=== PATIENT | male | born 1995 | race African-American/Black ===

== ENCOUNTER 2020-06-29 13:51 | Emergency (ER) | payer BC ==
[~2020-06-29] VITALS: Ht 177.8 cm; Wt 137.5 kg
[2020-06-29 13:57] VITALS: BP 148/88
== END 2020-06-29 16:19 | disposition home or self-care (01) ==
LOC: ER 13:52
DX: M25.572 Pain in left ankle and joints of left foot (principal); R22.42 Localized swelling, mass and lump, left lower limb; Z91.018 Allergy to other foods
CPT/HCPCS: 93971; 99284

== ENCOUNTER 2020-12-24 04:57 | Day surgery (SDC) | payer BC, SELFPAY ==
[2020-12-24] VITALS (10 sets, daily range): BP systolic 130–146; BP diastolic 68–111
[~2020-12-24] VITALS: Ht 177.8 cm; Wt 145.0 kg
[~2020-12-24 04:57] MED LIST: NO HOME MEDS
[2020-12-24] MEDS ORDERED: ringers solution, lacted 1,000 ML IV SCH ×2 (05:00→07:30)
[2020-12-24] MEDS ORDERED: ceFAZolin inj. 3,000 MG in normal saline 100ml IV soln 100 ML IV ONE (05:30)
[2020-12-24] MEDS ORDERED: famotidine 20mg tablet PO ONE (05:30)
[2020-12-24] MEDS ORDERED: LIDOcaine 1% (10mg/ml) 2ml vial ONE (06:00)
[2020-12-24 06:34] LABS: BASOPHILS % (AUTO) 0.4 % (0-1); EOSINOPHILS # (AUTO) 0.2 X10'3 (0-0.9); EOSINOPHILS % (AUTO) 2.6 % (0-6); LYMPHOCYTES # (AUTO) 1.6 X10'3 (1.1-4.8); LYMPHOCYTES % (AUTO) 22.1 % (21-51); MEAN CORPUSCULAR HEMOGLOBIN 32.8 PG (27.0-31.0); MEAN CORPUSCULAR HGB CONC 34.9 g/dL (33.0-36.5); MEAN CORPUSCULAR VOLUME 93.9 FL (78-98); MEAN PLATELET VOLUME 8.6 FL (7.4-10.4); MONOCYTES # (AUTO) 0.5 X10'3 (0-0.9); MONOCYTES % (AUTO) 6.7 % (2-12); NEUTROPHILS # (AUTO) 4.9 X10'3 (1.8-7.7); NEUTROPHILS % (AUTO) 68.2 % (42-75); PRE OP HEMATOCRIT 50.6 % (42.0-52.0); PRE OP HEMOGLOBIN 17.7 g/dL (14.0-17.9); PRE OP PLATELET COUNT 231 X10'3 (140-440); RED BLOOD COUNT 5.39 X10'6 (4.70-6.10); RED CELL DISTRIBUTION WIDTH 12.9 % (11.5-14.5)
[2020-12-24] MEDS ORDERED: MIDAZolam 5mg/5ml vial ONE (06:53)
[2020-12-24] MEDS ORDERED: sevoflurane 250ml liquid IH ONE (06:53)
[2020-12-24] MEDS ORDERED: fentaNYL /PF 50mcg/ml 5ml ampule ONE (06:54)
[2020-12-24 07:05] LABS: ALBUMIN 4.1 G/DL (3.4-5.0); ALKALINE PHOSPHATASE 78 IU/L (46-116); BLOOD UREA NITROGEN 10 MG/DL (7-18); BUN/CREATININE RATIO 9.9 (5.4-32.0); CALCIUM 9.1 MG/DL (8.5-10.1); CHLORIDE 103 MMOL/L (99-107); CREATININE 1.01 MG/DL (0.60-1.10); PRE OP ANION GAP 12 (8-16); PRE OP AST 88 U/L (10-37); PRE OP BILIRUB, TOTAL 1.6 MG/DL (0.0-1.0); PRE OP GLUCOSE 95 MG/DL (70-104); PRE OP POTASSIUM 3.6 MMOL/L (3.4-5.1); PRE OP SODIUM 140 MMOL/L (135-145); TOTAL CARBON DIOXIDE 25.2 MMOL/L (24-32); TOTAL PROTEIN 8.4 G/DL (6.4-8.2); eGFR > 90 ML/MIN
[2020-12-24] MEDS ORDERED: LIDOcaine 2% (20mg/ml) 5ml vial ONE (07:06)
[2020-12-24] MEDS ORDERED: propofol inj 20 ML IV ONE ×2 (07:06)
[2020-12-24] MEDS ORDERED: ondansetron/PF 4mg/2ml inj ONE (07:07)
[2020-12-24] MEDS ORDERED: dexamethasone sod phosphate 4mg/ml inj. ONE (07:07)
[2020-12-24 07:08] LABS: PRE OP ALT 189 U/L (30-65)
[2020-12-24] MEDS ORDERED: morphine 4 MG/ML inj SYRINge IV PRN (07:30)
[2020-12-24] MEDS ORDERED: hydrALAZINE 20mg/ml inj. IV PRN (07:30)
[2020-12-24] MEDS ORDERED: morphine 2 MG/ML inj. syringe IV PRN (07:30)
[2020-12-24] MEDS ORDERED: labetalol 20mg/4ml (5mg/ml) syringe IV PRN (07:30)
[2020-12-24] MEDS ORDERED: ondansetron/PF 4mg/2ml inj IV PRN (07:30)
[2020-12-24] MEDS ORDERED: fentaNYL/PF 50MCG/1 ML 2ML syringe IV PRN (07:30)
--- NOTE | 2020-12-24 08:43 | NUR ---
Received from OR via [facility], accompanied by Anesthesiologist DR CLEMENS and report given by Anesthesiologist. PT DROWSY, LEFT LOWER LEG W/SPLINT AND DRSG COVERING INCISION W/KLAUS WRAP COVERING CDI. 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 Addendum: 12/24/20 at 0937 by Jyoti Petty RN Amended: Links added.
[2020-12-24] MEDS: fentaNYL/PF 50MCG/1 ML 2ML syringe IV PRN ×2 (09:18→09:39)
[2020-12-24] MEDS ORDERED: oxyCODONE/APAP 5-325mg tablet PO ONE (10:15)
--- NOTE | 2020-12-24 10:33 | NUR ---
PT PAIN IMPROVING, PT WANTS TO GO HOME. D/C INSTRUCTIONS GIVEN AND GONE OVER W/PT WHO VERBALIZED UNDERSTANDING. PT D/CD TO HOME VIA W/C TO PRIVATE VEHICLE W/O INCIDENT. Addendum: 12/24/20 at 1101 by Jyoti Petty RN Amended: Links added.
== END 2020-12-24 10:33 | disposition home or self-care (01) ==
LOC: PAS 04:57
PROVIDERS: ATTEND Podiatrist Foot & Ankle Surgery
DX: M25.372 Other instability, left ankle (principal); M79.672 Pain in left foot; Q68.8 Other specified congenital musculoskeletal deformities; M65.872 Other synovitis and tenosynovitis, left ankle and foot; E66.01 Morbid (severe) obesity due to excess calories; Z68.42 Body mass index [BMI] 45.0-49.9, adult; F12.90 Cannabis use, unspecified, uncomplicated; Z91.018 Allergy to other foods; Z79.899 Other long term (current) drug therapy; Z79.82 Long term (current) use of aspirin; Z72.89 Other problems related to lifestyle; Z20.822 Contact with and (suspected) exposure to COVID-19
CPT/HCPCS: 27695; 28120; 29898; 36415; 80053; 85025; 87635; A6222; A6223; C1713; J0690; J1100; J2001; J2250; J2405; J2704; J3010; A4215; A4618; A6253; A6449; A7000; J7120

== ENCOUNTER 2021-02-13 06:56 | Emergency (ER) | payer BC ==
[~2021-02-13] VITALS: Ht 177.8 cm; Wt 136.4 kg
[2021-02-13] MEDS ORDERED: ondansetron 4mg rapidly disintigrating tab PO ONE (08:00)
[2021-02-13] MEDS ORDERED: CAPS60CR6 TP (08:14)
[2021-02-13] MEDS ORDERED: ONDA4TAB6 PO (08:14)
[2021-02-13 09:02] LABS: BASOPHILS % (AUTO) 0.1 % (0-1); EOSINOPHILS # (AUTO) 0.1 X10'3 (0-0.9); EOSINOPHILS % (AUTO) 1.7 % (0-6); HEMATOCRIT 53.4 % (42.0-52.0); LYMPHOCYTES # (AUTO) 1.3 X10'3 (1.1-4.8); LYMPHOCYTES % (AUTO) 19.2 % (21-51); MEAN CORPUSCULAR HEMOGLOBIN 32.3 PG (27.0-31.0); MEAN CORPUSCULAR HGB CONC 34.1 g/dL (33.0-36.5); MEAN CORPUSCULAR VOLUME 94.7 FL (78-98); MEAN PLATELET VOLUME 8.9 FL (7.4-10.4); MONOCYTES # (AUTO) 0.5 X10'3 (0-0.9); MONOCYTES % (AUTO) 7.4 % (2-12); NEUTROPHILS # (AUTO) 4.9 X10'3 (1.8-7.7); NEUTROPHILS % (AUTO) 71.6 % (42-75); PLATELET COUNT 272 X10'3 (140-440); RED BLOOD COUNT 5.64 X10'6 (4.70-6.10); RED CELL DISTRIBUTION WIDTH 12.6 % (11.5-14.5); WHITE BLOOD COUNT 6.8 X10'3 (4.5-11.0)
[2021-02-13 09:09] LABS: HEMOGLOBIN 18.2 g/dl (14.0-17.9)
[2021-02-13 09:13] LABS: ALANINE AMINOTRANSFERASE 161 U/L (12-78); ALBUMIN 4.4 G/DL (3.4-5.0); ALBUMIN/GLOBULIN RATIO 0.9 (1.1-1.5); ALKALINE PHOSPHATASE 82 IU/L (46-116); ANION GAP 13 (8-16); ASPARTATE AMINO TRANSFERASE 81 U/L (10-37); BILIRUBIN,TOTAL 1.4 MG/DL (0.1-1.0); BLOOD UREA NITROGEN 12 MG/DL (7-18); BUN/CREATININE RATIO 12.4 (5.4-32.0); CALCIUM 9.7 MG/DL (8.5-10.1); CHLORIDE 102 MMOL/L (99-107); CREATININE 0.97 MG/DL (0.60-1.10); GLUCOSE 98 MG/DL (70-104); LIPASE 147 U/L (73-393); POTASSIUM 3.4 MMOL/L (3.5-5.1); SODIUM 141 MMOL/L (135-145); TOTAL CARBON DIOXIDE 25.6 MMOL/L (24-32); TOTAL PROTEIN 9.2 G/DL (6.4-8.2); eGFR > 90 ML/MIN
== END 2021-02-13 08:36 | disposition home or self-care (01) ==
LOC: ER 06:58 → MERGE 06:58 → ER 08:36
DX: R11.2 Nausea with vomiting, unspecified (principal); F12.90 Cannabis use, unspecified, uncomplicated; M79.18 Myalgia, other site; R19.7 Diarrhea, unspecified; Z91.018 Allergy to other foods; Z79.899 Other long term (current) drug therapy
CPT/HCPCS: 36415; 80053; 83690; 85025; 99283